=== PATIENT | female | born 1960 | race Caucasian/White ===

== ENCOUNTER 2017-04-25 12:02 | Inpatient (IN) | payer OTHER ==
[2017-04-25 15:16] VITALS: BMI 27.4
[2017-04-25] MEDS ORDERED: MENTHOL/PHENOL 1 EACH UD MM PRN (18:14)
[2017-04-25] MEDS ORDERED: diazePAM 5 MG TABLET PO ONE (18:14)
[2017-04-25] MEDS ORDERED: hydrOXYzine PAMOATE 50 MG CAPSULE (FP) PO PRN (18:14)
[2017-04-25] MEDS ORDERED: MAGNESIUM HYDROX 2400MG/30ML ORAL SUSPENSION 30 ML CUP PO PRN (18:14)
[2017-04-25] MEDS ORDERED: P-EPHED 60MG/TRIPROLIDI 2.5MG TABLET PO PRN (18:14)
[2017-04-25] MEDS ORDERED: MAG HYDROX/AL HYDROX/SIMETH 30 ML UNIT-DOSE CUP PO PRN (18:14)
[2017-04-25] MEDS ORDERED: METHADONE HCL 10 MG TABLET (FOR DETOX USE ONLY) PO ONE ×2 (18:14→23:00)
[2017-04-25] MEDS ORDERED: IBUPROFEN 400 MG TABLET (FP) PO PRN (18:14)
[2017-04-25] MEDS ORDERED: ACETAMINOPHEN 325 MG TABLET (FP) PO PRN (18:14)
[2017-04-25] MEDS ORDERED: LOPERAMIDE HCL 2 MG CAPSULE PO PRN (18:14)
[2017-04-25] MEDS ORDERED: MAGNESIUM CITRATE 300 ML BOTTLE PO PRN (18:14)
[2017-04-25] MEDS ORDERED: guaiFENesin/D-METHORPHAN HB 10 ML UNIT-DOSE CUPS PO PRN (18:14)
[2017-04-25] MEDS ORDERED: NICOTINE POLACRILEX 2 MG GUM BC PRN (18:14)
--- NOTE | 2017-04-25 18:14 | HP ---
COWS - Scale Resting Pulse: 1= [place] 81-100 Sweatin= Chills/Flushing Restless Observation: 1= Difficult to Sit Still Pupil Size: 1= Pupils >than Normal Bone or Joint Aches: 1= Mild Discomfort Runny Nose/ Eye Tearin= Nasal Congestion GI Upset > 30mins: 2= Nausea/Diarrhea Tremor Observation: 2= Slight Tremor Visible Yawning Observation: 2= >3x During Session Anxiety or Irritability: 2=Irritable/Anxious Goose Flesh Skin: 3=Piloerection COWS Score: 17 CIWA Score - CIWA Score Nausea/Vomitin Muscle Tremors: 4-Moderate,w/Arms Extend Anxiety: 3 Agitation: 3 Paroxysmal Sweats: 3 Orientation: 0-Oriented Tacttile Disturbances: 0-None Auditory Disturbances: 0-None Visual Disturbances: 0-None Headache: 0-None Present CIWA-Ar Total Score: 16 Admission [facility] Chief Complaint: heroin and benzodiazepine withdrawal sx Allergies/Adverse Reactions: Allergies Allergy/AdvReac Type Severity Reaction Status Date / Time No Known Allergies Allergy Verified 04/25/17 16:52 History of Present Illness: 57 yo f with h/o heroin use, sniffs 3 bags daily and daily xanax use 6mg last used today now in withdrawal w h/o seizures from drug withdrawal. PMHx multiple medical comorbidities, suicide attmpet 3 years ago, no suicidal ideation. no dts social alcohl use. Exam Limitations: No Limitations - Ebola screening Have you traveled outside of the country in the last 21 days: No Have you had contact with anyone from an Ebola affected area: No Have you been sick,other than usual withdrawal symptoms: No - Review of Systems Constitutional: Chills, Diaphoresis, Loss of Appetite, Malaise, Night Sweats, Changes in sleep, Unintentional Wgt. Loss EENT: reports: Nose Congestion GI: reports: Diarrhea, Nausea, Poor Appetite, Poor Fluid Intake, Indigestion, Abdominal cramping : reports: No Symptoms Reported Musculoskeletal: reports: Back Pain, Muscle Pain Integumentary: reports: Flushing, Sweating Neuro: reports: Headache, Seizure (last seizure 2 months ago from drug withdrawal), Tremors Endocrine: reports: No Symptoms Reported Hematology: reports: No Symptoms Reported Psychiatric: reports: Judgement Intact, Mood/Affect Appropiate, Orientated x3, Anxious, Depressed Other Systems: Reviewed and Negative Patient History - Patient Medical History Hx Anemia: Yes Hx Asthma: No Hx Chronic Obstructive Pulmonary Disease (COPD): No Hx Cancer: No Hx Cardiac Disorders: No Hx Congestive Heart Failure: No Hx Hypertension: No Hx Hypercholesterolemia: Yes Hx Pacemaker: No HX Cerebrovascular Accident: No Hx Seizures: Yes (drug r/t x 1.12/25) Hx Dementia: No Hx Diabetes: No Hx Gastrointestinal Disorders: No Hx Liver Disease: Yes (f/u [facility] for viral hep) Hx Genitourinary Disorders: No Hx Sexually Transmitted Disorders: No Hx Renal Disease (ESRD): No Hx Thyroid Disease: No Hx Human Immunodeficiency Virus (HIV): No Hx Hepatitis C: Yes (hep a b and c, no treatment) Hx Depression: No Hx Suicide Attempt: Yes (drug over dose 3 yrs ago) Hx Schizophrenia: No - Patient Surgical History Past Surgical History: Yes Hx Neurologic Surgery: No Hx Cataract Extraction: No Hx Cardiac Surgery: No Hx Lung Surgery: No Hx Breast Surgery: No Hx Breast Biopsy: No Hx Abdominal Surgery: No Hx Appendectomy: No Hx Cholecystectomy: No Hx Genitourinary Surgery: No Hx Section: No Hx Orthopedic Surgery: Yes (LT .knee replacement) Other Surgical History: lt.foot Anesthesia Reaction: No - PPD History Previous Implant?: Yes Documented Results: Negative w/o proof Implanted On Prior [facility] Admission?: No PPD to be Administered?: Yes - Reproductive History Patient is a Female of Child Bearing Age (11 -55 yrs old): No Patient : No - Smoking Cessation Smoking history: Current every day smoker Have you smoked in the past 12 months: Yes Aproximately how many cigarettes per day: 5 Hx Chewing Tobacco Use: No Initiated information on smoking cessation: Yes 'Breaking Loose' booklet given: 04/25/17 - Substance & Tx. History Hx Alcohol Use: Yes (occasional social) Hx Substance Use: Yes Substance Use Type: Alcohol, Heroin, Opiates, Prescribed, Tranquilizers Hx Substance Use Treatment: Yes - Substances Abused Heroin Route: Inhalation Frequency: Daily Amount used: 3 BAGS Age of first use: 19 Date of Last Use: 04/25/17 Alprazolam (Xanax) Route: Oral Frequency: Daily Amount used: 6 MG Age of first use: 55 Date of Last Use: 04/25/17 Admission Physical Exam [facility] - Vital Signs Vital Signs: Vital Signs - 24 hr 04/25/17 15:12 Temperature 97.4 F L Pulse Rate 83 Respiratory 20 Rate Blood Pressure 149/87 - Physical General Appearance: Yes: Nourished, Appropriately Dressed, Mild Distress, Tremorous, Irritable, Sweating, Anxious HEENTM: Yes: EOMI, Hearing grossly Normal, Normocephalic, Normal Voice, JUAN, Pharynx Normal, Rhinorrhea Respiratory: Yes: Within Normal Limits, Chest Non-Tender, Lungs Clear, Normal Breath Sounds, No Respiratory Distress, No Accessory Muscle Use Neck: Yes: Within Normal Limits, No masses,lesions,Nodules, Supple, Trachea in good position Breast: Yes: Breast Exam Deferred Cardiology: Yes: Regular Rhythm, Regular Rate, S1, S2 Abdominal: Yes: Within Normal Limits, Normal Bowel Sounds, Non Tender, Flat, Soft Genitourinary: Yes: Within Normal Limits Back: Yes: Normal Inspection, Muscle Spasm Musculoskeletal: Yes: Gait Steady, Pelvis Stable, Back pain, Muscle Pain Extremities: Yes: Normal Capillary Refill, Normal Inspection, Normal Range of Motion, Tremors, Pedal Edema (1+), Swelling Neurological: Yes: financial coordinator II-XII NML intact, Fully Oriented, Alert, Motor Strength 5/5, Normal Response, Depressed Affect Integumentary: Yes: Normal Color, Warm, Diaphoresis, Moist Lymphatic: Yes: Within Normal Limits - Addiitonal Findings: withdrawal sx - Diagnostic (1) Opioid dependence with withdrawal Current Visit: Yes Status: Acute (2) Sedative, hypnotic or anxiolytic dependence with withdrawal, uncomplicated Current Visit: Yes Status: Acute (3) HTN (hypertension) Current Visit: Yes Status: Acute (4) Anemia Current Visit: Yes Status: Acute (5) Seizures Current Visit: Yes Status: Acute (6) Nicotine dependence Current Visit: Yes Status: Acute Cleared for Admission [facility] - Detox or Rehab [facility] Level of Care: Medically Managed Detox Regimen/Protocol: Methadone/Valium [facility] Breath Alcohol Content Breath Alcohol Content: 0 Urine Pregancy Test - Result Urine Test Results: Negative- NO Line Present Urine Drug Screen - Results Drug Screen Negative: No Urine Drug Screen Results: OPI-Opiates, BZO-Benzodiazepines
[2017-04-25] MEDS: NICOTINE 14 MG/24 HOURS TOPICAL PATCH TD SCH (19:50)
[2017-04-25 22:29] LABS: URINE APPEARANCE SLCLOUDY; URINE BILIRUBIN NEGATIVE (NEGATIVE); URINE BLOOD NEGATIVE (NEGATIVE); URINE COLOR LTYELLOW; URINE GLUCOSE (UA) NEGATIVE (NEGATIVE); URINE KETONE NEGATIVE (NEGATIVE); URINE NITRITE NEGATIVE (NEGATIVE); URINE PROTEIN NEGATIVE (NEGATIVE); URINE UROBILINOGEN NEGATIVE mg/dL (0.2-1.0)
[2017-04-25] MEDS: THIAMINE HCL 100 MG TABLET (FP) PO SCH (22:34)
[2017-04-25] MEDS: diazePAM 5 MG TABLET PO SCH (22:35)
[2017-04-26] MEDS: diazePAM 5 MG TABLET PO PRN ×2 (01:38→10:38)
[2017-04-26] MEDS: diazePAM 5 MG TABLET PO SCH ×3 (05:27→22:34)
[2017-04-26] MEDS ORDERED: COLLOIDAL OATMEAL 1 BAR EACH TP PRN (07:04)
[2017-04-26] MEDS ORDERED: METHADONE HCL 10 MG TABLET (FOR DETOX USE ONLY) PO SCH (10:00)
[2017-04-26 10:24] LABS: MCH 29.9 pg (25.7-33.7); MCHC 32.6 g/dl (32.0-36.0); MEAN CELL VOLUME 91.6 fl (80-96); MEAN PLT VOLUME 7.7 fl (7.5-11.1); PLATELET COUNT 271 K/MM3 (134-434); RDW 14.2 % (11.6-15.6); WHITE BLOOD COUNT 6.6 K/mm3 (4.0-10.0)
--- NOTE | 2017-04-26 10:24 | PN ---
S CIWA - CIWA Score Nausea/Vomitin Muscle Tremors: 3 Anxiety: 3 Agitation: 3 Paroxysmal Sweats: 2 Orientation: 0-Oriented Tacttile Disturbances: 1-Very Mild Itch/Numbness Auditory Disturbances: 1-Very Mild Visual Disturbances: 0-None Headache: 2-Mild CIWA-Ar Total Score: 18 BHS COWS - Scale Resting Pulse: 0= SD 80 or Below Sweatin= Chills/Flushing Restless Observation: 3= Extraneous Movement Pupil Size: 1= Pupils >than Normal Bone or Joint Aches: 2= Severe Diffuse Aches Runny Nose/ Eye Tearin= Runny Nose/Eyes GI Upset > 30mins: 2= Nausea/Diarrhea Tremor Observation of Outstretched Hands: 2= Slight Tremor Visible Yawning Observation: 1= 1-2x During Session Anxiety or Irritability: 2=Irritable/Anxious Goose Flesh Skin: 0=Smooth Skin COWS Score: 16 S Progress Note (SOAP) Subjective: ALERT,IRRITABLE,ANXIOUS,INTERRUPTED SLEEP,PAIN IN THE BODY AND BACK Objective: 04/26/17 10:22 Vital Signs Temperature 97.7 F 04/26/17 06:13 Pulse Rate 69 04/26/17 06:13 Respiratory Rate 18 04/26/17 06:13 Blood Pressure 126/78 04/26/17 06:13 O2 Sat by Pulse Oximetry (%) EKG NSR NO CHEST PAIN,NO SOB,NO DIZZINESS Laboratory Last Values Urine Color Ltyellow 04/25/17 19:11 Urine Appearance Slcloudy 04/25/17 19:11 Urine pH 6.0 (5.0-8.0) 04/25/17 19:11 Ur Specific [place] 1.013 (1.001-1.035) 04/25/17 19:11 Urine Protein Negative (NEGATIVE) 04/25/17 19:11 Urine Glucose (UA) Negative (NEGATIVE) 04/25/17 19:11 Urine Ketones Negative (NEGATIVE) 04/25/17 19:11 Urine Blood Negative (NEGATIVE) 04/25/17 19:11 Urine Nitrite Negative (NEGATIVE) 04/25/17 19:11 Urine Bilirubin Negative (NEGATIVE) 04/25/17 19:11 Urine Urobilinogen Negative mg/dL (0.2-1.0) 04/25/17 19:11 LABS PENDING Assessment: 04/26/17 10:23 WITHDRAWAL SYMPTOM Plan: CONTINUE DETOX
[2017-04-26] MEDS: PRENATAL VITAMINS W/ FOLIC ACID TABLET (FP) PO SCH (10:38)
[2017-04-26] MEDS: NICOTINE 14 MG/24 HOURS TOPICAL PATCH TD SCH (10:39)
[2017-04-26 10:58] LABS: SGOT/AST 9 U/L (15-37)
[2017-04-26 11:05] LABS: ALBUMIN 3.7 g/dl (3.4-5.0); ALK PHOS 74 U/L (45-117); ANION GAP 9 (8-16); BILIRUBIN,TOTAL 0.4 mg/dL (0.2-1.0); CALCIUM 9.2 mg/dL (8.5-10.1); CO2 28 mmol/L (21-32); CREATININE 0.6 mg/dL (0.55-1.02); GLUCOSE,RANDOM 84 mg/dL (74-106); SGPT/ALT 23 U/L (12-78); TOT PROT 7.3 g/dl (6.4-8.2)
[2017-04-26 11:14] LABS: URINE LEUK ESTERASE Negative (NEGATIVE)
[2017-04-26] MEDS ORDERED: diphenhydrAMINE HCL 50 MG CAPSULE PO ONE (11:42)
--- NOTE | 2017-04-26 11:46 | PN ---
BHS Progress Note Note: ITCHING RASH BOTH FOREARMS,RIGHT UPPER ARM,BENADRYL 50 MGS PO NOW THEN 25 MGS Q 6HRS PRN FOR ITCHING, HYDROCORTISONE CREAM 1% BID
--- NOTE | 2017-04-26 12:36 | EKG ---
Test Reason : Blood Pressure : / mmHG Vent. Rate : 079 BPM Atrial Rate : 079 BPM P-R Int : 144 ms QRS Dur : 098 ms QT Int : 384 ms P-R-T Axes : 080 064 061 degrees QTc Int : 440 ms NORMAL SINUS RHYTHM BIATRIAL ENLARGEMENT INCOMPLETE RIGHT BUNDLE BRANCH BLOCK ABNORMAL ECG WHEN COMPARED WITH ECG OF 21-MAR-2006 14:51, INCOMPLETE RIGHT BUNDLE BRANCH BLOCK IS NOW PRESENT NONSPECIFIC T WAVE ABNORMALITY NOW EVIDENT IN ANTERIOR LEADS Confirmed by ANDRE ZARATE MD ([id number]) on 04/26/2017 12:36:21 PM Referred By: Confirmed By:NADRE ZARATE MD
[2017-04-26] MEDS: HYDROCORTISONE 1% TOPICAL CREAM 30 GM TUBE TP SCH ×2 (15:05→22:35)
--- NOTE | 2017-04-26 15:06 | CONSULT ---
[facility] Psychiatric Consult - Data Date of interview: 04/26/17 Admission source: [facility] Identifying data: This is 57 years old female with psychiatric hospitalization history intoxicated with: Alcohol, Heroin, Xanax and Nicotine Substance Abuse History: Smoking history: Current every day smoker. Have you smoked in the past 12 months: Yes. Aproximately how many cigarettes per day: 5. Hx Chewing Tobacco Use: No. Initiated information on smoking cessation: Yes. 'Breaking Loose' booklet given: 04/25/17. - Substance & Tx. History. Hx Alcohol Use: Yes (occasional social). Hx Substance Use: Yes. Substance Use Type: Alcohol, Heroin, Opiates, Prescribed, Tranquilizers. Hx Substance Use Treatment: Yes. - Substances Abused. Heroin. Route: Inhalation. Frequency : Daily. Amount used: 3 BAGS. Age of first use: 19. Date of Last Use: . Alprazolam (Xanax). Route: Oral. Frequency: Daily. Amount used: 6 MG. Age of first use: 55. Date of Last Use: 04/25/17 Medical History: HTN, Anemia history, Seizure history, Hep C, Hypersholesterolemia, Psychiatric History: Shelly reports history of anxiety and depression, reports m ost recent psychiatric admission on 2016 at [facility].reports unclear suicidal attempt by OD on about 3-4 years ago, reports has been under influence thet time, reports no suicidal history since then. Patient reports taking prior to admission: Seroquel 200mg po qhs Physical/Sexual Abuse/Trauma History: Denies Additional Comment: Seroquel 200mg po qhs Mental Status Exam - Mental Status Exam Alert and Oriented to: Person Cognitive Function: Fair Patient Appearance: Unkempt Mood: Elated, Anxious Affect: Labile Patient Behavior: Cooperative Speech Pattern: Excessive Voice Loudness: Mildly Loud Thought Process: Goal Oriented Thought Disorder: Being Controlled Hallucinations: Denies Suicidal Ideation: Denies Homicidal Ideation: Denies Insight/Judgement: Fair Sleep: Difficulty falling asleep Appetite: Fair Muscle strength/Tone: Normal Gait/Station: Normal Additional Comments: Seroquel 200mg po qhs Psychiatric Findings - Problem List ([place] 1, 2,3) (1) Drug-induced mood disorder Current Visit: Yes Status: Acute (2) Nicotine dependence Current Visit: Yes Status: Acute (3) Opioid dependence with withdrawal Current Visit: Yes Status: Acute (4) Sedative, hypnotic or anxiolytic dependence with withdrawal, uncomplicated Current Visit: Yes Status: Acute - Initial Treatment Plan Initial Treatment Plan: Seroquel 200mg po qhs
[2017-04-26] MEDS: diphenhydrAMINE HCL 25 MG CAPSULE (FP) PO PRN (17:45)
[2017-04-26] MEDS: THIAMINE HCL 100 MG TABLET (FP) PO SCH (22:34)
[2017-04-26] MEDS: QUEtiapine FUMARATE 200 MG TABLET PO SCH (22:34)
--- NOTE | 2017-04-27 10:33 | PN ---
S CIWA - CIWA Score Nausea/Vomitin Muscle Tremors: 3 Anxiety: 2 Agitation: 2 Paroxysmal Sweats: 1-Minimal Palms Moist Orientation: 0-Oriented Tacttile Disturbances: 1-Very Mild Itch/Numbness Auditory Disturbances: 1-Very Mild Visual Disturbances: 0-None Headache: 2-Mild CIWA-Ar Total Score: 15 BHS COWS - Scale Resting Pulse: 0= ID 80 or Below Sweatin= Chills/Flushing Restless Observation: 3= Extraneous Movement Pupil Size: 1= Pupils >than Normal Bone or Joint Aches: 2= Severe Diffuse Aches Runny Nose/ Eye Tearin= Runny Nose/Eyes GI Upset > 30mins: 2= Nausea/Diarrhea Tremor Observation of Outstretched Hands: 2= Slight Tremor Visible Yawning Observation: 1= 1-2x During Session Anxiety or Irritability: 2=Irritable/Anxious Goose Flesh Skin: 0=Smooth Skin COWS Score: 16 S Progress Note (SOAP) Subjective: alert,irritable,anxious,interrupted sleep,tremor,pain in the body and back Objective: 04/27/17 10:31 Vital Signs Temperature 98.8 F 04/27/17 10:17 Pulse Rate 79 04/27/17 10:17 Respiratory Rate 18 04/27/17 10:17 Blood Pressure 120/78 04/27/17 10:17 O2 Sat by Pulse Oximetry (%) Laboratory Last Values WBC 6.6 K/mm3 (4.0-10.0) 04/26/17 04:00 RBC 4.24 M/mm3 (3.60-5.2) 04/26/17 04:00 Hgb 12.7 GM/dL (10.7-15.3) 04/26/17 04:00 Hct 38.8 % (32.4-45.2) 04/26/17 04:00 MCV 91.6 fl (80-96) 04/26/17 04:00 MCH 29.9 pg (25.7-33.7) 04/26/17 04:00 MCHC 32.6 g/dl (32.0-36.0) 04/26/17 04:00 RDW 14.2 % (11.6-15.6) 04/26/17 04:00 Plt Count 271 K/MM3 (134-434) 04/26/17 04:00 MPV 7.7 fl (7.5-11.1) 04/26/17 04:00 Sodium 140 mmol/L (136-145) 04/26/17 04:00 Potassium 4.5 mmol/L (3.5-5.1) 04/26/17 04:00 Chloride 103 mmol/L (98-107) 04/26/17 04:00 Carbon Dioxide 28 mmol/L (21-32) 04/26/17 04:00 Anion Gap 9 (8-16) 04/26/17 04:00 BUN 10 mg/dL (7-18) 04/26/17 04:00 Creatinine 0.6 mg/dL (0.55-1.02) 04/26/17 04:00 Creat Clearance w eGFR > 60 (>60) 04/26/17 04:00 Random Glucose 84 mg/dL (74-106) 04/26/17 04:00 Calcium 9.2 mg/dL (8.5-10.1) 04/26/17 04:00 Total Bilirubin 0.4 mg/dL (0.2-1.0) 04/26/17 04:00 AST 9 U/L (15-37) L 04/26/17 04:00 ALT 23 U/L (12-78) 04/26/17 04:00 Alkaline Phosphatase 74 U/L (45-117) 04/26/17 04:00 Total Protein 7.3 g/dl (6.4-8.2) 04/26/17 04:00 Albumin 3.7 g/dl (3.4-5.0) 04/26/17 04:00 Urine Color Ltyellow 04/25/17 19:11 Urine Appearance Slcloudy 04/25/17 19:11 Urine pH 6.0 (5.0-8.0) 04/25/17 19:11 Ur Specific [place] 1.013 (1.001-1.035) 04/25/17 19:11 Urine Protein Negative (NEGATIVE) 04/25/17 19:11 Urine Glucose (UA) Negative (NEGATIVE) 04/25/17 19:11 Urine Ketones Negative (NEGATIVE) 04/25/17 19:11 Urine Blood Negative (NEGATIVE) 04/25/17 19:11 Urine Nitrite Negative (NEGATIVE) 04/25/17 19:11 Urine Bilirubin Negative (NEGATIVE) 04/25/17 19:11 Urine Urobilinogen Negative mg/dL (0.2-1.0) 04/25/17 19:11 Ur Leukocyte Esterase Negative (NEGATIVE) 04/25/17 19:11 RPR Titer Nonreactive (NONREACTIVE) 04/26/17 04:00 Assessment: 04/27/17 10:32 withdrawal symptom Plan: continue detox
[2017-04-27] MEDS: diazePAM 5 MG TABLET PO SCH ×2 (10:48→22:28)
[2017-04-27] MEDS: PRENATAL VITAMINS W/ FOLIC ACID TABLET (FP) PO SCH (10:48)
[2017-04-27] MEDS: HYDROCORTISONE 1% TOPICAL CREAM 30 GM TUBE TP SCH ×2 (10:48→22:28)
[2017-04-27] MEDS: NICOTINE 14 MG/24 HOURS TOPICAL PATCH TD SCH (10:48)
[2017-04-27] MEDS: METHADONE HCL 5 MG TABLET (FOR DETOX USE ONLY) PO SCH (10:48)
[2017-04-27] MEDS: diphenhydrAMINE HCL 25 MG CAPSULE (FP) PO PRN (12:37)
[2017-04-27] MEDS: diazePAM 5 MG TABLET PO PRN (19:35)
[2017-04-27] MEDS: THIAMINE HCL 100 MG TABLET (FP) PO SCH (22:28)
[2017-04-27] MEDS: QUEtiapine FUMARATE 200 MG TABLET PO SCH (22:28)
[2017-04-28] MEDS: diazePAM 5 MG TABLET PO SCH ×2 (10:47→22:25)
[2017-04-28] MEDS: PRENATAL VITAMINS W/ FOLIC ACID TABLET (FP) PO SCH (10:47)
[2017-04-28] MEDS: METHADONE HCL 5 MG TABLET (FOR DETOX USE ONLY) PO SCH (10:48)
[2017-04-28] MEDS: HYDROCORTISONE 1% TOPICAL CREAM 30 GM TUBE TP SCH ×2 (10:50→22:25)
[2017-04-28] MEDS: NICOTINE 14 MG/24 HOURS TOPICAL PATCH TD SCH (10:50)
--- NOTE | 2017-04-28 14:55 | PN ---
BHS Progress Note (SOAP) Subjective: Sweating,interrupted sleep,restless Objective: 04/28/17 14:53 Vital Signs - 8 hr 04/28/17 04/28/17 10:00 14:07 Temperature 98.8 F 98.4 F Pulse Rate 76 83 Respiratory 18 18 Rate Blood Pressure 136/79 132/72 Laboratory Tests 04/25/17 04/26/17 04/26/17 19:11 04:00 04:00 WBC 6.6 RBC 4.24 Hgb 12.7 Hct 38.8 MCV 91.6 MCH 29.9 MCHC 32.6 RDW 14.2 Plt Count 271 MPV 7.7 Sodium 140 Potassium 4.5 Chloride 103 Carbon Dioxide 28 Anion Gap 9 BUN 10 Creatinine 0.6 Creat Clearance w eGFR > 60 Random Glucose 84 Calcium 9.2 Total Bilirubin 0.4 AST 9 L ALT 23 Alkaline Phosphatase 74 Total Protein 7.3 Albumin 3.7 Urine Color Ltyellow Urine Appearance Slcloudy Urine pH 6.0 Ur Specific [place] 1.013 Urine Protein Negative Urine Glucose (UA) Negative Urine Ketones Negative Urine Blood Negative Urine Nitrite Negative Urine Bilirubin Negative Urine Urobilinogen Negative Ur Leukocyte Esterase Negative RPR Titer 04/26/17 04:00 WBC RBC Hgb Hct MCV MCH MCHC RDW Plt Count MPV Sodium Potassium Chloride Carbon Dioxide Anion Gap BUN Creatinine Creat Clearance w eGFR Random Glucose Calcium Total Bilirubin AST ALT Alkaline Phosphatase Total Protein Albumin Urine Color Urine Appearance Urine pH Ur Specific [place] Urine Protein Urine Glucose (UA) Urine Ketones Urine Blood Urine Nitrite Urine Bilirubin Urine Urobilinogen Ur Leukocyte Esterase RPR Titer Nonreactive labs noted Assessment: 04/28/17 14:53 Withdrawal sx. Plan: Continue detox
[2017-04-28] MEDS: QUEtiapine FUMARATE 200 MG TABLET PO SCH (22:25)
[2017-04-28] MEDS: THIAMINE HCL 100 MG TABLET (FP) PO SCH (22:25)
[2017-04-29] MEDS ORDERED: diazePAM 5 MG TABLET PO SCH (10:00)
[2017-04-29] MEDS ORDERED: METHADONE HCL 10 MG TABLET (FOR DETOX USE ONLY) PO SCH (10:00)
[2017-04-29] MEDS: NICOTINE 14 MG/24 HOURS TOPICAL PATCH TD SCH (10:35)
[2017-04-29] MEDS: PRENATAL VITAMINS W/ FOLIC ACID TABLET (FP) PO SCH (10:35)
[2017-04-29] MEDS: HYDROCORTISONE 1% TOPICAL CREAM 30 GM TUBE TP SCH ×2 (10:35→22:19)
--- NOTE | 2017-04-29 12:42 | PN ---
BHS Progress Note (SOAP) Subjective: Sweating,interrupted sleep,restless Objective: 04/29/17 12:39 Vital Signs - 8 hr 04/29/17 04/29/17 06:00 09:31 Temperature 97.9 F 97.3 F L Pulse Rate 90 75 Respiratory 18 18 Rate Blood Pressure 131/83 119/77 Laboratory Tests 04/25/17 04/26/17 04/26/17 19:11 04:00 04:00 WBC 6.6 RBC 4.24 Hgb 12.7 Hct 38.8 MCV 91.6 MCH 29.9 MCHC 32.6 RDW 14.2 Plt Count 271 MPV 7.7 Sodium 140 Potassium 4.5 Chloride 103 Carbon Dioxide 28 Anion Gap 9 BUN 10 Creatinine 0.6 Creat Clearance w eGFR > 60 Random Glucose 84 Calcium 9.2 Total Bilirubin 0.4 AST 9 L ALT 23 Alkaline Phosphatase 74 Total Protein 7.3 Albumin 3.7 Urine Color Ltyellow Urine Appearance Slcloudy Urine pH 6.0 Ur Specific [place] 1.013 Urine Protein Negative Urine Glucose (UA) Negative Urine Ketones Negative Urine Blood Negative Urine Nitrite Negative Urine Bilirubin Negative Urine Urobilinogen Negative Ur Leukocyte Esterase Negative RPR Titer 04/26/17 04:00 WBC RBC Hgb Hct MCV MCH MCHC RDW Plt Count MPV Sodium Potassium Chloride Carbon Dioxide Anion Gap BUN Creatinine Creat Clearance w eGFR Random Glucose Calcium Total Bilirubin AST ALT Alkaline Phosphatase Total Protein Albumin Urine Color Urine Appearance Urine pH Ur Specific [place] Urine Protein Urine Glucose (UA) Urine Ketones Urine Blood Urine Nitrite Urine Bilirubin Urine Urobilinogen Ur Leukocyte Esterase RPR Titer Nonreactive labs noted Assessment: 04/29/17 12:39 Withdrawal sx. Plan: Continue detox
[2017-04-29] MEDS: THIAMINE HCL 100 MG TABLET (FP) PO SCH (22:19)
[2017-04-29] MEDS: QUEtiapine FUMARATE 200 MG TABLET PO SCH (22:19)
[2017-04-30] MEDS ORDERED: METHADONE HCL 5 MG TABLET (FOR DETOX USE ONLY) PO SCH (06:00)
--- NOTE | 2017-04-30 09:31 | PN ---
S Progress Note (SOAP) Subjective: alert,irritable,anxious,interrupted sleep Objective: 04/30/17 09:30 Vital Signs Temperature 97.9 F 04/30/17 06:03 Pulse Rate 81 04/30/17 06:03 Respiratory Rate 18 04/30/17 06:03 Blood Pressure 136/64 04/30/17 06:03 O2 Sat by Pulse Oximetry (%) Assessment: 04/30/17 09:30 withdrawal symptom Plan: continue detox,discharge in am
--- NOTE | 2017-04-30 10:03 | PN ---
S Progress Note Note: dependennt edema both foot and leg,to give lasix 40 mgs po dialy for 3 days
[2017-04-30] MEDS: NICOTINE 14 MG/24 HOURS TOPICAL PATCH TD SCH (10:13)
[2017-04-30] MEDS: PRENATAL VITAMINS W/ FOLIC ACID TABLET (FP) PO SCH (10:13)
[2017-04-30] MEDS: HYDROCORTISONE 1% TOPICAL CREAM 30 GM TUBE TP SCH ×2 (10:14→22:12)
[2017-04-30] MEDS ORDERED: FUROSEMIDE 40 MG TABLET (FP) PO SCH (10:22)
[2017-04-30] MEDS: QUEtiapine FUMARATE 200 MG TABLET PO SCH (22:11)
[2017-04-30] MEDS: THIAMINE HCL 100 MG TABLET (FP) PO SCH (22:11)
--- NOTE | 2017-05-01 07:12 | DS ---
[facility] Detox Discharge Summary Admission Date: 04/25/17 Discharge Date: 05/01/17 - History Present History: Opioid Dependence, Sedative Dependence Additional Comments: follow up with after care program as arrangement Pertinent Past History: hypertension seizure nicotine dependence - Physical Exam Results Vital Signs: Vital Signs Temperature 97.5 F L 05/01/17 06:26 Pulse Rate 74 05/01/17 06:26 Respiratory Rate 18 05/01/17 06:26 Blood Pressure 101/57 05/01/17 06:26 O2 Sat by Pulse Oximetry (%) Pertinent Admission Physical Exam Findings: withdrawing symptom - Treatment Hospital Course: Detox Protocol Followed, Detoxed Safely, Responded well, Discharged Condition Good Patient has Accepted a Rehab Referral to: declined - Medication Discharge Medications: Ambulatory Orders Quetiapine Fumarate [Seroquel -] 200 mg PO HS #30 tablet 04/26/17 - Diagnosis (1) Opioid dependence with withdrawal Current Visit: Yes Status: Acute (2) Anemia Current Visit: Yes Status: Acute (3) HTN (hypertension) Current Visit: Yes Status: Acute (4) Nicotine dependence Current Visit: Yes Status: Acute (5) Sedative, hypnotic or anxiolytic dependence with withdrawal, uncomplicated Current Visit: Yes Status: Acute (6) Seizures Current Visit: Yes Status: Acute (7) Edema of both feet Current Visit: Yes Status: Acute - AMA Did Patient Leave Against Medical Advice: No
[2017-05-01 09:51] VITALS: BP 113/72; PULSE 94; TEMP 98.8
== END 2017-05-01 09:20 | disposition home or self-care (01) | DRG 897 ==
LOC: YASAS 12:02 → Y6N 18:01
PROVIDERS: ADMIT Internal Medicine; ATTEND Internal Medicine
PROC: HZ2ZZZZ Detoxification Services for Substance Abuse Treatment (ICD-10-PCS; principal; 2017-04-25)
DX: F11.23 Opioid dependence with withdrawal (principal); B19.10 Unspecified viral hepatitis B without hepatic coma; B15.9 Hepatitis A without hepatic coma; F13.230 Sedative, hypnotic or anxiolytic dependence with withdrawal, uncomplicated; F17.210 Nicotine dependence, cigarettes, uncomplicated; F19.24 Other psychoactive substance dependence with psychoactive substance-induced mood disorder; I10 Essential (primary) hypertension; G40.909 Epilepsy, unspecified, not intractable, without status epilepticus; D64.9 Anemia, unspecified; E78.00 Pure hypercholesterolemia, unspecified; B19.20 Unspecified viral hepatitis C without hepatic coma
CPT/HCPCS: 36415; 80053; 81003; 85027; 86593; 93005; 93010